=== PATIENT | female | born 1975 | race Caucasian/White ===

== ENCOUNTER → 2021-01-08 | Outpatient (CLI) | payer OTHER | END | disposition home or self-care (01) | LOC: STAR 08:00 → EDSTATUS 01-11 07:30 | PROVIDERS: ATTEND Orthopaedic Surgery | DX: Z20.822 Contact with and (suspected) exposure to COVID-19 (principal); M66.3 Spontaneous rupture of flexor tendons | CPT/HCPCS: U0003; U0005 ==